=== PATIENT | male | born 1945 | race Two or more races ===

== ENCOUNTER 2016-05-05 22:06 | Emergency (ER) | payer MEDICARE, OTHER ==
[~2016-05-05] VITALS: Ht 182.9 cm; Wt 95.3 kg
[~2016-05-05 22:06] MED LIST: ALBUTEROL SULF8.5 GM INH; AMOXICILLIN500 MG ORAL; ASPIRIN EC81 MG PO; ATORVASTATIN CA10 MG PO; AZITHROMYCIN250 MG ORAL; CELEXA20 MG ORAL; FLOMAX0.4 MG PO; IBUPROFEN600 MG ORAL; IBUPROFEN800 MG ORAL; JANUMET 50-1,01 EACH PO; LORATADINE10 M2 PO; LOSARTAN-HCTZ1 EAC2 PO; METFORMIN HCL500 M1 ORAL; NORCO 5-325 TA1 EACH ORAL; OMEGA-31000 M1 PO; OMEPRAZOLE10 M1 ORAL; PROMETHAZINE-C118 M1 ORAL; SYNTHROID100 MCG PO; TRAMADOL HCL50 MG ORAL; TRICOR54 MG ORAL; TUSSIN DM CLEA118 M1 PO; ZITHROMAX250 MG ORAL
[2016-05-05] MEDS ORDERED: ACETAMINOPHEN-1 EAC1 ORAL (23:00)
[2016-05-05 23:10] VITALS: BP 168/86
--- NOTE | 2016-05-06 08:55 | Emergency Room Report ---
History of Present Illness General Chief Complaint: Hypertension Source: Patient Present Illness HPI 71 YO M with left arm pain and "high blood pressure". Patient endorses self- stopping HTN med lisinopril "weeks ago." Patient states he was "told to stop the medication because my pressure is better." He states he has had left arm pain "for weeks." He denies assoc chest pain, SOB, fever/chills. Per EMR, patient has had multiple visits here for similar noncompliance with BP med and also left arm pain. Has had lab work including troponin, which was negative, recently. This is very similar to multiple recent visits to ED. Allergies: Coded Allergies: No Known Allergies (Unverified , 06/02/12) Patient History Past Medical History: HTN Past Surgical History: none Pertinent Family History: none Social History: Denies: alcohol use, drug use, smoking Immunizations: UTD Reviewed Nursing Documentation: PMH: Agreed, PSxH: Agreed Nursing Documentation-PMH Past Medical History: No History, Except For Hx Cardiac Problems: Yes - high cholesterol Hx Hypertension: Yes Hx Pacemaker: No Hx Asthma: No Hx COPD: No Hx Diabetes: Yes Hx Cancer: No Hx Dialysis: No Hx Neurological Problems: No Hx Cerebrovascular Accident: No Hx Seizures: No Review of Systems All Other Systems: negative except mentioned in HPI Physical Exam Vital Signs Date Time Temp Pulse Resp B/P Pulse Ox O2 Delivery O2 Flow Rate FiO2 05/05/16 22:28 98.1 65 16 190/87 99 Room Air Sp02 EP Interpretation: reviewed, normal General Appearance: normal inspection, well appearing, no apparent distress, alert Head: normocephalic, atraumatic ENT: normal ENT inspection, hearing grossly normal, normal voice Neck: normal inspection, full range of motion, supple, no bony tend Musculoskeletal: normal inspection, back normal, normal range of motion, non- tender, Rudy's Sign negative, other - Left arm: sensation intact. Motor strength intact. No obvious sign of infection. Compartments are south. Neurologic: normal inspection, alert, oriented x3, responsive, powersaw supervisor III-XII nml as tested, motor strength/tone normal, cerebellar normal, normal gait, speech normal Psychiatric: normal inspection, judgement/insight normal, mood/affect normal Skin: normal inspection Lymphatic: normal inspection Medical Decision Making Diagnostic Impression: Primary Impression: Musculoskeletal arm pain Qualified Codes: M79.602 - Pain In Left Arm ER Course 71 YO M with MSK pain to left arm, multiple recent visits for same. VSS. Afebrile. ECG unchanged from previous. Low suspicion for acute AMI, upper extremity DVT, infection. MUltiple visitis for pain, likely MSK Had negative labwork done recently. No need to repeat currently Patient took his home HTN med in the ED No assoc headache, chest pain, flank pain that would warrant further workup for HTN urgency DC home Reiterated importance of HTN med compliance Last Vital Signs Date Time Temp Pulse Resp B/P Pulse Ox O2 Delivery O2 Flow Rate FiO2 05/05/16 23:10 98.0 57 14 168/86 100 Room Air Status: improved Disposition: HOME, SELF-CARE Condition: Improved Scripts Acetaminophen With Codeine (T#3) (TYLENOL #3 TAB*) Y Tab 1 TAB ORAL Q8H Y for For Pain, #30 TAB Prov: CAREY ANTON M.D. 05/05/16 Patient Instructions: Musculoskeletal Pain, Hypertension, [id number] Additional Instructions: - Take your BP medication every day - Try taking Tyelnol #3 for pain - Follow up with your primary care doctor in 2-3 days for recurrent left arm pain CAREY ANTON M.D. May 06, 2016 08:55
--- NOTE | 2016-05-06 15:01 | Cardiology Report ---
APPROVED REPORT EKG Measurement Heart [id number] Normal sinus rhythm Right bundle branch block Left anterior fascicular block Bifascicular block Abnormal ECG
== END 2016-05-05 23:15 | disposition home or self-care (01) ==
LOC: EMR 22:47
DX: I10 Essential (primary) hypertension (principal); M79.602 Pain in left arm; E78.00 Pure hypercholesterolemia, unspecified; E11.9 Type 2 diabetes mellitus without complications
CPT/HCPCS: 93005; 99283

== ENCOUNTER 2016-07-29 02:16 | Emergency (ER) | payer MEDICARE, OTHER ==
[~2016-07-29] VITALS: Ht 182.9 cm; Wt 95.3 kg
[~2016-07-29 02:16] MED LIST changes: +ACETAMINOPHEN-1 EAC1 ORAL
[2016-07-29 02:31] VITALS: BP 161/73
--- NOTE | 2016-07-29 02:43 | Emergency Room Report ---
History of Present Illness General Chief Complaint: Abdominal Pain Source: Patient Present Illness HPI 71-year-old male with history hypertension diabetes. He presents with chief complaint abdominal pain for last 5 days. No vomiting but has occasional diarrhea. Pain is diffuse localized to the umbilicus. No fever or chills. No other complaint. Pain is 7/10. Denies any urinary complaint. Allergies: Coded Allergies: No Known Allergies (Unverified , 06/02/12) Patient History Past Medical History: see triage record, old chart reviewed, DM, HTN Past Surgical History: none Pertinent Family History: none Social History: Denies: smoking Immunizations: other Reviewed Nursing Documentation: PMH: Agreed, PSxH: Agreed Nursing Documentation-PMH Hx Cardiac Problems: Yes - high cholesterol Hx Hypertension: Yes Hx Pacemaker: No Hx Asthma: No Hx COPD: No Hx Diabetes: Yes Hx Cancer: No Hx Dialysis: No Hx Neurological Problems: No Hx Cerebrovascular Accident: No Hx Seizures: No Review of Systems Eye: Denies: blurred vision, eye pain ENT: Denies: ear pain, nose congestion, throat swelling Respiratory: Denies: cough, shortness of breath Cardiovascular: Denies: chest pain, palpitations Gastrointestinal: Reports: abdominal pain, diarrhea, Denies: nausea, vomiting Musculoskeletal: Denies: back pain, joint pain Skin: Denies: rash Neurological: Denies: headache, numbness Endocrine: Denies: increased thirst, increased urine Hematologic/Lymphatic: Denies: easy bruising All Other Systems: negative except mentioned in HPI Physical Exam Vital Signs Date Time Temp Pulse Resp B/P Pulse Ox O2 Delivery O2 Flow Rate FiO2 07/29/16 02:18 97.9 63 14 141/77 97 Room Air vitals normal Sp02 EP Interpretation: reviewed, normal General Appearance: well appearing, no apparent distress, alert Head: normocephalic, atraumatic Eyes: bilateral eye EOMI, bilateral eye PERRL ENT: hearing grossly normal, normal pharynx Neck: full range of motion, supple, no meningismus Respiratory: chest non-tender, lungs clear, normal breath sounds Cardiovascular #1: regular rate, rhythm, no murmur Gastrointestinal: normal bowel sounds, no mass, no organomegaly, no bruit, non- distended, tenderness - Mild periumbilical. No hernia palpated. Musculoskeletal: back normal, gait/station normal, normal range of motion Psychiatric: mood/affect normal Skin: warm/dry Medical Decision Making Diagnostic Impression: Primary Impression: Abdominal pain of unknown etiology Additional Impression: Cholelithiasis Qualified Codes: K80.20 - Calculus of gallbladder without cholecystitis without obstruction ER Course Patient with abdominal pain his pain is periumbilical and left lateral. He does have occasional pain in the right upper quadrant after eating. Right now he has no pain in the right upper quadrant. CT scan showed gallstone in the neck of the gallbladder. There may be some pericholecystic fluid. Critically he does not have evidence of cholecystitis. I will order an ultrasound. If negative patient to be discharged home with outpatient followup. If positive for cholecystitis, will admit versus transfer based on insurance. Patient expressed understanding. Ultrasound showed small gallstones and sludge but no evidence of cholecystitis. Negative Scott sign. No pericholecystic fluid. Common bile duct is normal. Laboratory Tests Test 07/29/16 02:45 White Blood Count 6.1 K/UL (4.8-10.8) Red Blood Count 5.70 M/UL (4.70-6.10) Hemoglobin 16.9 G/DL (14.2-18.0) Hematocrit 48.6 % (42.0-52.0) Mean Corpuscular Volume 85 FL (80-99) Mean Corpuscular Hemoglobin 29.8 PG (27.0-31.0) Mean Corpuscular Hemoglobin Concent 34.8 G/DL (32.0-36.0) Red Cell Distribution Width 12.3 % (11.6-14.8) Platelet Count 171 K/UL (150-450) Mean Platelet Volume 8.2 FL (6.5-10.1) Neutrophils (%) (Auto) 49.9 % (45.0-75.0) Lymphocytes (%) (Auto) 35.7 % (20.0-45.0) Monocytes (%) (Auto) 11.3 % (1.0-10.0) H Eosinophils (%) (Auto) 1.9 % (0.0-3.0) Basophils (%) (Auto) 1.4 % (0.0-2.0) Urine Color Pale yellow Urine Appearance Clear Urine pH 6 (4.5-8.0) Urine Specific [place] 1.015 (1.005-1.035) Urine Protein Negative (NEGATIVE) Urine Glucose (UA) Negative (NEGATIVE) Urine Ketones Negative (NEGATIVE) Urine Occult Blood Negative (NEGATIVE) Urine Nitrite Negative (NEGATIVE) Urine Bilirubin Negative (NEGATIVE) Urine Urobilinogen Normal MG/DL (0.0-1.0) Urine Leukocyte Esterase Negative (NEGATIVE) Sodium Level 136 mEQ/L (135-145) Potassium Level 4.5 mEQ/L (3.4-4.9) Chloride Level 96 mEQ/L (98-107) L Carbon Dioxide Level 28 mEQ/L (20-30) Anion Gap 12 (5-15) Blood Urea Nitrogen 12 mg/dL (7-23) Creatinine 0.9 mg/dL (0.7-1.2) Estimat Glomerular Filtration Rate mL/min (>60) Glucose Level 140 mg/dL (74-106) H Calcium Level 9.8 mg/dL (8.6-10.2) Total Bilirubin 0.4 mg/dL (0.0-1.2) Aspartate Amino Transf (AST/SGOT) < 5 U/L (5-40) L Alanine Aminotransferase (ALT/SGPT) 27 U/L (3-41) Alkaline Phosphatase 60 U/L (40-129) Total Protein 7.0 g/dL (6.6-8.7) Albumin 4.1 g/dL (3.5-5.2) Globulin 2.9 g/dL Albumin/Globulin Ratio 1.4 (1.0-2.7) Lipase 35 U/L (< 60) Lab Results Impression labs normal Other X-Ray Diagnostic Results Other X-Ray Diagnostic Results : X-Ray Ordered: Ultrasound abdomen Findings: other - Read by water tanker driver. Gallstones and sludge. No evidence of pericholecystic fluid. Negative Scott sign. CT/MRI/US Diagnostic Results CT/MRI/US Diagnostic Results : Imaging Test Ordered: CT abdomen and pelvis Impression Read by radiologist. Gallstone in the neck of the gallbladder. Some gallbladder wall thickening and or pericholecystic fluid is suspected. Appendix normal Last Vital Signs Date Time Temp Pulse Resp B/P Pulse Ox O2 Delivery O2 Flow Rate FiO2 07/29/16 02:31 97.9 60 13 161/73 100 Room Air Status: improved Disposition: HOME, SELF-CARE Condition: Stable Scripts Ibuprofen* (MOTRIN*) 600 Mg Tablet 600 MG ORAL THREE TIMES A DAY, #30 TAB 0 Refills Prov: PELON ROBB M.D. 07/29/16 Additional Instructions: Followup with your Dr. in 2-3 days. You may need a referral to see a surgeon. Return if symptom worsen. PELON ROBB M.D. Jul 29, 2016 02:43
[2016-07-29] MEDS ORDERED: Ketorolac 30mg Inj IV ONE (02:45)
[2016-07-29 02:58] LABS: BASOPHILS % (AUTO) 1.4 % (0.0-2.0); EOSINOPHILS % (AUTO) 1.9 % (0.0-3.0); LYMPHOCYTES % (AUTO) 35.7 % (20.0-45.0); MEAN CORPUSCULAR HEMOGLOBIN 29.8 PG (27.0-31.0); MEAN CORPUSCULAR HGB CONC 34.8 G/DL (32.0-36.0); MEAN CORPUSCULAR VOLUME 85 FL (80-99); MEAN PLATELET VOLUME 8.2 FL (6.5-10.1); MONOCYTES % (AUTO) 11.3 % (1.0-10.0); NEUTROPHILS % (AUTO) 49.9 % (45.0-75.0); PLATELET COUNT 171 K/UL (150-450); RED CELL DISTRIBUTION WIDTH 12.3 % (11.6-14.8); WHITE BLOOD COUNT 6.1 K/UL (4.8-10.8)
[2016-07-29 03:06] LABS: APPEARANCE,URINE CLEAR; KETONES,URINE NEGATIVE (NEGATIVE); LEUKOCYTE ESTERASE ,URINE NEGATIVE (NEGATIVE); NITRITE,URINE NEGATIVE (NEGATIVE); PH,URINE 6 (4.5-8.0); PROTEIN,URINE NEGATIVE (NEGATIVE); UROBILINOGEN,URINE NORMAL MG/DL (0.0-1.0)
[2016-07-29 03:15] LABS: ALANINE AMINOTRANSFERASE 27 U/L (3-41); ALBUMIN/GLOBULIN RATIO 1.4 (1.0-2.7); ANION GAP 12 (5-15); CALCIUM 9.8 mg/dL (8.6-10.2); CARBON DIOXIDE 28 mEQ/L (20-30); CHLORIDE 96 mEQ/L (98-107); CREATININE 0.9 mg/dL (0.7-1.2); HEMOLYSIS 30; LIPASE 35 U/L (< 60); POTASSIUM 4.5 mEQ/L (3.4-4.9); SODIUM 136 mEQ/L (135-145)
[2016-07-29 03:23] LABS: ASPARTATE AMINO TRANSFERASE < 5 U/L (5-40)
[2016-07-29 04:30] VITALS: BP 150/74
[2016-07-29] MEDS ORDERED: cefTRIAXone 1 GM in NS 55 ML IVPB ONE (05:00)
[2016-07-29] MEDS ORDERED: IBUPROFEN600 MG ORAL (05:55)
[2016-07-29 06:00] VITALS: BP 146/76
--- NOTE | 2016-07-29 11:11 | Diagnostic Imaging Report ---
Clinical Indication: Abdominal pain Technique: No oral contrast utilized, per emergency room physician request IV administration nonionic contrast. Venous phase spiral acquisition obtained through the abdomen and pelvis. Multiplanar reconstructions were generated. Total dose length product 954 mGycm. CTDIvol(s) 18 mGy Comparison: 08/26/2015 Findings: Previously demonstrated gallstone is again seen within the gallbladder neck. There is distention of the gallbladder and thickening of the gallbladder wall, equivocal subtle slight infiltration of the pericholecystic fat. No biliary ductal dilatation. The liver demonstrates a tiny low-attenuation lesion in the dome, which is too small to characterize but evident previously in retrospect and unchanged. The pancreas is unremarkable. The spleen is mildly enlarged, measuring 13.7 cm long axis dimension. The adrenals are unremarkable. The left kidney demonstrates a 2 mm calculus in the lower pole collecting system. No focal parenchymal abnormality. The right kidney is unremarkable. The bladder is equivocally mildly thickwalled although underdistended. The prostate is enlarged, similar to previously. No pelvic adenopathy demonstrated. There is colonic diverticulosis. No evidence of diverticulitis. The appendix is normal. No small bowel distention. There is a tiny duodenal diverticulum. There is a small sliding-type hiatal hernia. The stomach is unremarkable. There are degenerative changes of the lumbar spine. The lung bases demonstrate posterior dependent atelectatic changes Impression: Cholelithiasis. Distention and wall thickening of the gallbladder is concerning for acute cholecystitis. Consider hepatobiliary nuclear medicine scan for better characterization Nonobstructive 2 mm left lower pole intrarenal calculus, also previously reported Diverticulosis. No evidence of diverticulitis. Tiny lesion in the dome of the liver, unchanged from prior study of 08/26/2015, most likely a benign simple cysts or bile hamartomas. No further followup necessary Mild splenomegaly Prostatomegaly Mildly thickwalled bladder, possibly an artifact of under distention, but could be secondary to chronic bladder obstruction from the above Incidental findings of tiny findings at hernia, degenerative lumbar spondylosis, posterior dependent atelectatic pulmonary parenchymal changes This agrees with the preliminary interpretation provided overnight by [facility] teleradiology service. The CT scanner at [facility] is accredited by the [employer] and the scans are performed using protocols designed to limit radiation exposure to as low as reasonably achievable to attain images of sufficient resolution adequate for diagnostic evaluation.
--- NOTE | 2016-08-14 13:40 | Diagnostic Imaging Report ---
Indications: Abdominal pain Technique: Transabdominal real-time grayscale and duplex Doppler imaging of the upper abdomen and retroperitoneum was performed. Findings: Comparison: CT abdomen pelvis 07/29/16; abdominal ultrasound 12/09/2015. Liver normal size and surface contour, diffusely increased parenchymal echogenicity. No focal lesions. Gallbladder contains hypoechoic multilobulated nodular material. Suggestion of small echogenic shadowing focus in... No mural thickening or adjacent fluid collections. Sonographic Scott sign reported as negative.. Bile ducts normal caliber. Common bile duct 8 mm. Pancreas head and body suboptimally visualized without obvious abnormality; tail completely obscured. Spleen unremarkable. Right kidney unremarkable. Left kidney unremarkable. Abdominal aorta, intrahepatic portion of inferior vena cava patent, normal caliber. Duplex Doppler imaging demonstrates antegrade flow in splenic, portal, hepatic veins. No ascites. IMPRESSION: Hepatic steatosis Gallbladder sludge and stone in neck. Mural thickening on CT scan not well demonstrated here. Negative sonographic Scott sign. Consider nuclear medicine hepatobiliary scan for further evaluation as clinically indicated. Suboptimal visualization of pancreas.
== END 2016-07-29 06:00 | disposition home or self-care (01) ==
LOC: EMR 02:49
DX: R10.9 Unspecified abdominal pain (principal); K80.20 Calculus of gallbladder without cholecystitis without obstruction; I10 Essential (primary) hypertension; E11.9 Type 2 diabetes mellitus without complications; E78.00 Pure hypercholesterolemia, unspecified
CPT/HCPCS: 36415; 74177; 76700; 80053; 81003; 83690; 85025; 96374; 96375; 99284; J0696; J1885; J2405; Q9967

== ENCOUNTER 2016-08-12 11:43 | Emergency (ER) | payer MEDICARE, OTHER ==
[~2016-08-12] VITALS: Ht 182.9 cm; Wt 95.3 kg
[2016-08-12] MEDS ORDERED: NS 55ml IV ONE (12:11)
[2016-08-12 12:28] VITALS: BP 155/79
[2016-08-12] MEDS ORDERED: Morphine Sulfate 4mg/ml Inj IVP ONE ×4 (12:30→15:15)
[2016-08-12 12:47] LABS: BASOPHILS % (AUTO) 0.4 % (0.0-2.0); EOSINOPHILS % (AUTO) 0.5 % (0.0-3.0); LYMPHOCYTES % (AUTO) 20.6 % (20.0-45.0); MEAN CORPUSCULAR HEMOGLOBIN 29.1 PG (27.0-31.0); MEAN CORPUSCULAR HGB CONC 33.7 G/DL (32.0-36.0); MEAN CORPUSCULAR VOLUME 86 FL (80-99); MEAN PLATELET VOLUME 8.2 FL (6.5-10.1); MONOCYTES % (AUTO) 8.4 % (1.0-10.0); NEUTROPHILS % (AUTO) 70.1 % (45.0-75.0); PLATELET COUNT 185 K/UL (150-450); RED BLOOD COUNT 5.76 M/UL (4.70-6.10); RED CELL DISTRIBUTION WIDTH 12.4 % (11.6-14.8); WHITE BLOOD COUNT 7.7 K/UL (4.8-10.8)
[2016-08-12 12:51] LABS: APPEARANCE,URINE CLEAR; KETONES,URINE NEGATIVE (NEGATIVE); LEUKOCYTE ESTERASE ,URINE NEGATIVE (NEGATIVE); NITRITE,URINE NEGATIVE (NEGATIVE); PH,URINE 6.5 (4.5-8.0); PROTEIN,URINE NEGATIVE (NEGATIVE); UROBILINOGEN,URINE NORMAL MG/DL (0.0-1.0)
[2016-08-12 12:56] LABS: INR 1.1 (0.9-1.1); PROTHROMBIN TIME 10.7 SEC (9.30-11.50)
[2016-08-12 13:01] LABS: TROPONIN I < 0.30 ng/mL (<=0.30)
[2016-08-12 13:06] LABS: ALANINE AMINOTRANSFERASE 25 U/L (3-41); ALBUMIN/GLOBULIN RATIO 1.5 (1.0-2.7); ANION GAP 15 (5-15); ASPARTATE AMINO TRANSFERASE 29 U/L (5-40); CALCIUM 9.9 mg/dL (8.6-10.2); CARBON DIOXIDE 27 mEQ/L (20-30); CHLORIDE 96 mEQ/L (98-107); HEMOLYSIS 4; LIPASE 32 U/L (< 60); POTASSIUM 4.2 mEQ/L (3.4-4.9); SODIUM 138 mEQ/L (135-145); TOTAL PROTEIN 7.1 g/dL (6.6-8.7)
[2016-08-12 14:30] VITALS: BP 162/82
--- NOTE | 2016-08-12 15:13 | Emergency Room Report ---
History of Present Illness General Chief Complaint: Abdominal Pain Source: Patient Present Illness HPI This patient has a history of cholecystitis that was diagnosed 2 weeks ago. Apparently, he left AGAINST MEDICAL ADVICE when I reviewed the chart. However, the of the patient states he went to [facility] and were discharged without surgery. Regardless, the patient complains of right upper quadrant pain for the past 3 days. He states that the pain has increased in severity and has become intolerable. He also has subjective fever and chills. Allergies: Coded Allergies: No Known Allergies (Unverified , 06/02/12) Patient History Past Medical History: see triage record, DM, HTN Social History: Denies: alcohol use, drug use, smoking Reviewed Nursing Documentation: PMH: Agreed, PSxH: Agreed Nursing Documentation-PMH Past Medical History: No History, Except For Hx Cardiac Problems: Yes - high cholesterol Hx Hypertension: Yes Hx Pacemaker: No Hx Asthma: No Hx COPD: No Hx Diabetes: Yes Hx Cancer: No Hx Gastrointestinal Problems: Yes - gallbladder Hx Dialysis: No Hx Neurological Problems: No Hx Cerebrovascular Accident: No Hx Seizures: No Review of Systems All Other Systems: negative except mentioned in HPI Physical Exam Vital Signs Date Time Temp Pulse Resp B/P Pulse Ox O2 Delivery O2 Flow Rate FiO2 08/12/16 11:48 99.3 64 16 142/69 94 Room Air Sp02 EP Interpretation: reviewed, normal General Appearance: no apparent distress, alert, GCS 15, non-toxic Head: normocephalic, atraumatic Eyes: bilateral eye PERRL, bilateral eye normal inspection ENT: hearing grossly normal, normal pharynx, no angioedema, normal voice Neck: full range of motion, supple/symm/no masses Respiratory: chest non-tender, lungs clear, normal breath sounds, speaking full sentences Cardiovascular #1: regular rate, rhythm, no edema Gastrointestinal: soft, non-distended, no guarding, no rebound, tenderness - Tender to palpation in the RUQ Rectal: deferred Musculoskeletal: back normal, gait/station normal, normal range of motion, non- tender Neurologic: alert, oriented x3, responsive, motor strength/tone normal, sensory intact, speech normal Psychiatric: judgement/insight normal, memory normal, mood/affect normal, no suicidal/homicidal ideation Skin: normal color, no rash, warm/dry, well hydrated Medical Decision Making Diagnostic Impression: Primary Impression: Cholecystitis Additional Impression: Cholelithiasis ER Course This patient presents with cholecystitis. He also has a gallstone in the gallbladder neck very close to the common bile duct. There is no evidence of biliary obstruction. The patient has normal liver function tests. This patient will need cholecystectomy. He did agree to admission and surgical removal of his gallbladder. He is given broad-spectrum antibiotics, IV fluids and pain control. He is admitted for further evaluation and treatment. Labs Test 08/12/16 12:03 White Blood Count 7.7 K/UL (4.8-10.8) Red Blood Count 5.76 M/UL (4.70-6.10) Hemoglobin 16.8 G/DL (14.2-18.0) Hematocrit 49.8 % (42.0-52.0) Mean Corpuscular Volume 86 FL (80-99) Mean Corpuscular Hemoglobin 29.1 PG (27.0-31.0) Mean Corpuscular Hemoglobin Concent 33.7 G/DL (32.0-36.0) Red Cell Distribution Width 12.4 % (11.6-14.8) Platelet Count 185 K/UL (150-450) Mean Platelet Volume 8.2 FL (6.5-10.1) Neutrophils (%) (Auto) 70.1 % (45.0-75.0) Lymphocytes (%) (Auto) 20.6 % (20.0-45.0) Monocytes (%) (Auto) 8.4 % (1.0-10.0) Eosinophils (%) (Auto) 0.5 % (0.0-3.0) Basophils (%) (Auto) 0.4 % (0.0-2.0) Prothrombin Time 10.7 SEC (9.30-11.50) Prothromb Time International Ratio 1.1 (0.9-1.1) Activated Partial Thromboplast Time 27 SEC (23-33) Urine Color Pale yellow Urine Appearance Clear Urine pH 6.5 (4.5-8.0) Urine Specific [place] 1.010 (1.005-1.035) Urine Protein Negative (NEGATIVE) Urine Glucose (UA) 1+ (NEGATIVE) Urine Ketones Negative (NEGATIVE) Urine Occult Blood Negative (NEGATIVE) Urine Nitrite Negative (NEGATIVE) Urine Bilirubin Negative (NEGATIVE) Urine Urobilinogen Normal MG/DL (0.0-1.0) Urine Leukocyte Esterase Negative (NEGATIVE) Sodium Level 138 mEQ/L (135-145) Potassium Level 4.2 mEQ/L (3.4-4.9) Chloride Level 96 mEQ/L (98-107) Carbon Dioxide Level 27 mEQ/L (20-30) Anion Gap 15 (5-15) Blood Urea Nitrogen 14 mg/dL (7-23) Creatinine 1.0 mg/dL (0.7-1.2) Estimat Glomerular Filtration Rate mL/min (>60) Glucose Level 175 mg/dL (74-106) Calcium Level 9.9 mg/dL (8.6-10.2) Total Bilirubin 0.5 mg/dL (0.0-1.2) Aspartate Amino Transf (AST/SGOT) 29 U/L (5-40) Alanine Aminotransferase (ALT/SGPT) 25 U/L (3-41) Alkaline Phosphatase 62 U/L (40-129) Troponin I < 0.30 ng/mL (<=0.30) Total Protein 7.1 g/dL (6.6-8.7) Albumin 4.3 g/dL (3.5-5.2) Globulin 2.8 g/dL Albumin/Globulin Ratio 1.5 (1.0-2.7) Lipase 32 U/L (< 60) EKG Diagnostic Results Rate: normal Rhythm: NSR ST Segments: no acute changes Other Impression RBBB Rhythm Strip Diag. Results EP Interpretation: yes Rate: 60's Rhythm: NSR, no PVC's, no ectopy CT/MRI/US Diagnostic Results CT/MRI/US Diagnostic Results : Imaging Test Ordered: RUQ US Impression Cholecystitis. Cholelithiasis. Gallstone in the gallbladder neck. Last Vital Signs Date Time Temp Pulse Resp B/P Pulse Ox O2 Delivery O2 Flow Rate FiO2 08/12/16 14:30 99.1 66 22 162/82 98 Room Air Disposition: ADMITTED INPATIENT Condition: Serious Referrals: NOT CHOSEN IPA/,REFERRING (PCP) ELINOR FRENCH D.O. Aug 12, 2016 15:13
[2016-08-12] MEDS ORDERED: cefOXitin 2gm Inj IVP ONE (15:15)
--- NOTE | 2016-08-12 15:29 | Diagnostic Imaging Report ---
Indication: Right upper quadrant pain x3 days, vomiting Technique: Pineda-scale and duplex images of the upper abdomen were obtained Comparison: 07/29/2016 Findings: . Gallbladder demonstrates gallstones and sludge. A nonmobile stone is seen within the gallbladder neck. Gallbladder wall is markedly thickened, measuring up to 15 mm thick. Sonographic Scott's sign could not be assessed. Common bile duct measures 8 mm in diameter. No intrahepatic biliary ductal dilatation. Liver demonstrates diffusely increased echogenicity, consistent with diffuse hepatocellular disease, most likely fatty change.. Portal vein and hepatic veins are patent.. Pancreas is obscured by bowel gas. Spleen is unremarkable. Left kidney measures 12.8 cm in length. Right kidney measures 11.2 cm length. Both kidneys demonstrate normal echogenicity. There is no hydronephrosis. No focal abnormality. Abdominal aorta is obscured by bowel gas. Impression: Cholelithiasis and gallbladder sludge, also previously described. Marked gallbladder wall thickening, raises concern for acute cholecystitis. Correlate with clinical findings, consider hepatobiliary nuclear scan if there is high clinical suspicion Mildly ectatic extra hepatic bile ducts. Downstream obstruction not completely excludable. Correlate with liver function tests, consider MRCP if clinically indicated. Liver demonstrates diffusely increased echogenicity, consistent with diffuse hepatocellular disease, most likely fatty change. Note nonvisualization of the pancreas and abdominal aorta
[2016-08-12] MEDS ORDERED: HYDROmorphone 1mg/ml Carpuject ONE (15:34)
[2016-08-12] MEDS ORDERED: DiphenhydrAMINE 50mg/ml Inj ONE (15:35)
[2016-08-12] MEDS ORDERED: HYDROmorphone 1 MG, DiphenhydrAMINE 25 MG in NS 55 ML IVPB ONE (15:45)
[2016-08-12] MEDS ORDERED: cefOXitin 1gm Inj ONE (15:59)
[2016-08-12] MEDS ORDERED: cefOXitin Sod 1 GM in NS 55 ML IVPB ONE (16:00)
[2016-08-12 16:30] VITALS: BP 151/71
[2016-08-12 18:16] VITALS: BP 139/70
--- NOTE | 2016-08-17 22:45 | Cardiology Report ---
APPROVED REPORT EKG Measurement Heart [id number] MD [id number] Normal sinus rhythm Left axis deviation Right bundle branch block Abnormal ECG
== END 2016-08-12 18:18 | disposition short-term general hospital (02) ==
LOC: EMR 12:10
DX: K80.10 Calculus of gallbladder with chronic cholecystitis without obstruction (principal); I10 Essential (primary) hypertension; E11.9 Type 2 diabetes mellitus without complications
CPT/HCPCS: 36415; 76700; 80053; 81003; 83690; 84484; 85025; 85610; 85730; 93005; 99285; J0694; J1170; J1200; J2270; J2405

== ENCOUNTER 2016-10-18 19:55 | Emergency (ER) | payer MEDICARE, OTHER ==
[~2016-10-18] VITALS: Ht 182.9 cm; Wt 95.3 kg
[2016-10-18] MEDS ORDERED: Albuterol ud Inhalation HHN ONE (20:30)
[2016-10-18 20:35] LABS: BASOPHILS % (AUTO) 1.1 % (0.0-2.0); EOSINOPHILS % (AUTO) 0.9 % (0.0-3.0); LYMPHOCYTES % (AUTO) 31.9 % (20.0-45.0); MEAN CORPUSCULAR HEMOGLOBIN 29.7 PG (27.0-31.0); MEAN CORPUSCULAR HGB CONC 34.6 G/DL (32.0-36.0); MEAN CORPUSCULAR VOLUME 86 FL (80-99); MEAN PLATELET VOLUME 8.8 FL (6.5-10.1); MONOCYTES % (AUTO) 7.8 % (1.0-10.0); NEUTROPHILS % (AUTO) 58.3 % (45.0-75.0); PLATELET COUNT 135 K/UL (150-450); RED BLOOD COUNT 5.08 M/UL (4.70-6.10); RED CELL DISTRIBUTION WIDTH 12.5 % (11.6-14.8); WHITE BLOOD COUNT 6.1 K/UL (4.8-10.8)
[2016-10-18 20:45] LABS: TROPONIN I < 0.30 ng/mL (<=0.30)
[2016-10-18] MEDS ORDERED: guaiFENesin 100mg/5ml Liq ud ORAL ONE (20:45)
[2016-10-18 20:49] LABS: ALANINE AMINOTRANSFERASE 27 U/L (3-41); ALBUMIN/GLOBULIN RATIO 1.8 (1.0-2.7); ANION GAP 14 (5-15); ASPARTATE AMINO TRANSFERASE 29 U/L (5-40); CALCIUM 9.7 mg/dL (8.6-10.2); CARBON DIOXIDE 25 mEQ/L (20-30); CHLORIDE 98 mEQ/L (98-107); HEMOLYSIS 9; SODIUM 137 mEQ/L (135-145); TOTAL PROTEIN 7.1 g/dL (6.6-8.7)
[2016-10-18 20:59] LABS: APPEARANCE,URINE CLEAR; KETONES,URINE NEGATIVE (NEGATIVE); LEUKOCYTE ESTERASE ,URINE NEGATIVE (NEGATIVE); NITRITE,URINE NEGATIVE (NEGATIVE); PH,URINE 6 (4.5-8.0); PROTEIN,URINE NEGATIVE (NEGATIVE); UROBILINOGEN,URINE NORMAL MG/DL (0.0-1.0)
[2016-10-18] MEDS ORDERED: GUAIFENESIN-CO118 M1 ORAL (21:24)
[2016-10-18 21:35] VITALS: BP 140/84
[2016-10-18 21:40] VITALS: BP 140/84
--- NOTE | 2016-10-18 22:17 | Emergency Room Report ---
History of Present Illness General Chief Complaint: Chest Pain Source: Patient Present Illness HPI Patient is a 71-year-old male presented after increased cough for the past 4 days. Patient had been hospitalized at [facility] approximate 2 days ago. The patient had not any fever. He reported having intermittent chest discomfort worse with coughing. He was given prescription for antibiotics and inhalers. He had gradual onset of symptoms. The patient denies any exertional component to the pain. He stated he was seen by press pipe inspector on hospital and was advised followup with him. The pain was worse with coughing. he reported taking an inhaler. The patient denies prior history of lung disease or smoking Allergies: Coded Allergies: No Known Allergies (Unverified , 06/02/12) Patient History Past Medical History: see triage record Reviewed Nursing Documentation: PMH: Agreed, PSxH: Agreed Nursing Documentation-PMH Hx Cardiac Problems: Yes - high cholesterol Hx Hypertension: Yes Hx Pacemaker: No Hx Asthma: No Hx COPD: No Hx Diabetes: Yes Hx Cancer: No Hx Gastrointestinal Problems: Yes - gallbladder Hx Dialysis: No Hx Neurological Problems: No Hx Cerebrovascular Accident: No Hx Seizures: No Review of Systems All Other Systems: negative except mentioned in HPI Physical Exam Vital Signs Date Time Temp Pulse Resp B/P Pulse Ox O2 Delivery O2 Flow Rate FiO2 10/18/16 20:00 98.1 66 18 167/86 96 Room Air 10/18/16 20:40 21 Sp02 EP Interpretation: reviewed, normal General Appearance: normal inspection, well appearing, no apparent distress, alert, GCS 15 Head: atraumatic ENT: normal ENT inspection, hearing grossly normal, normal voice Neck: normal inspection, full range of motion, supple, no bony tend Respiratory: normal inspection, lungs clear, normal breath sounds, no respiratory distress, no retraction, no wheezing Cardiovascular #1: regular rate, rhythm, no edema Gastrointestinal: normal inspection, normal bowel sounds, non tender, soft, no guarding, no hernia Genitourinary: no CVA tenderness Musculoskeletal: normal inspection, back normal, normal range of motion Neurologic: normal inspection, alert, oriented x3, responsive, miter operator III-XII nml as tested, speech normal Psychiatric: normal inspection, judgement/insight normal, mood/affect normal Skin: normal inspection, normal color, no rash Medical Decision Making Diagnostic Impression: Primary Impression: Bronchitis Additional Impression: Bifascicular block ER Course Patient presented for chest pain. Differential diagnosis included but was not limited to acute coronary syndrome, pulmonary embolism, pneumonia, aortic dissection, shingles, pneumothorax, aortic dissection, esophageal rupture, Because of complexity of patient's case laboratory testing and imaging studies were ordered. Chest x-ray one view interpreted by me showed normal cardiac size without evident infiltrate or pneumothorax. EKG interpreted by me showed normal sinus rhythm with a rate of [address] or T wave changes. The patient is advised to follow up with primary care doctor in 1-2 days. Patient is advised to return if any worsening condition or if any changes in status that are concerning. Labs Test 10/18/16 20:10 10/18/16 20:30 White Blood Count 6.1 K/UL (4.8-10.8) Red Blood Count 5.08 M/UL (4.70-6.10) Hemoglobin 15.1 G/DL (14.2-18.0) Hematocrit 43.6 % (42.0-52.0) Mean Corpuscular Volume 86 FL (80-99) Mean Corpuscular Hemoglobin 29.7 PG (27.0-31.0) Mean Corpuscular Hemoglobin Concent 34.6 G/DL (32.0-36.0) Red Cell Distribution Width 12.5 % (11.6-14.8) Platelet Count 135 K/UL (150-450) Mean Platelet Volume 8.8 FL (6.5-10.1) Neutrophils (%) (Auto) 58.3 % (45.0-75.0) Lymphocytes (%) (Auto) 31.9 % (20.0-45.0) Monocytes (%) (Auto) 7.8 % (1.0-10.0) Eosinophils (%) (Auto) 0.9 % (0.0-3.0) Basophils (%) (Auto) 1.1 % (0.0-2.0) Sodium Level 137 mEQ/L (135-145) Potassium Level 4.0 mEQ/L (3.4-4.9) Chloride Level 98 mEQ/L (98-107) Carbon Dioxide Level 25 mEQ/L (20-30) Anion Gap 14 (5-15) Blood Urea Nitrogen 12 mg/dL (7-23) Creatinine 1.0 mg/dL (0.7-1.2) Estimat Glomerular Filtration Rate mL/min (>60) Glucose Level 165 mg/dL (74-106) Calcium Level 9.7 mg/dL (8.6-10.2) Total Bilirubin 0.5 mg/dL (0.0-1.2) Aspartate Amino Transf (AST/SGOT) 29 U/L (5-40) Alanine Aminotransferase (ALT/SGPT) 27 U/L (3-41) Alkaline Phosphatase 55 U/L (40-129) Troponin I < 0.30 ng/mL (<=0.30) Pro-B-Type Natriuretic Peptide 40 pg/mL (0-125) Total Protein 7.1 g/dL (6.6-8.7) Albumin 4.6 g/dL (3.5-5.2) Globulin 2.5 g/dL Albumin/Globulin Ratio 1.8 (1.0-2.7) Urine Color Pale yellow Urine Appearance Clear Urine pH 6 (4.5-8.0) Urine Specific [place] 1.010 (1.005-1.035) Urine Protein Negative (NEGATIVE) Urine Glucose (UA) Negative (NEGATIVE) Urine Ketones Negative (NEGATIVE) Urine Occult Blood Negative (NEGATIVE) Urine Nitrite Negative (NEGATIVE) Urine Bilirubin Negative (NEGATIVE) Urine Urobilinogen Normal MG/DL (0.0-1.0) Urine Leukocyte Esterase Negative (NEGATIVE) Lactic Acid Level 1.80 mmol/L (0.66-2.22) Chest X-Ray Diagnostic Results Chest X-Ray Ordered: Yes # of Views/Limited/Complete: 1 View Interpretation: no consolidation Indication: Chest Pain Impression: No acute disease Date Electronically Signed: Oct 18, 2016 Time Electronically Signed: 22:16 Interpreting ER Physician: Kalen Last Vital Signs Date Time Temp Pulse Resp B/P Pulse Ox O2 Delivery O2 Flow Rate FiO2 10/18/16 21:40 98.1 61 17 140/84 95 Room Air 21 Status: improved Disposition: HOME, SELF-CARE Condition: Stable Scripts Guaifenesin/Codeine Phos* (ROBITUSSIN AC*) 118 Ml Liquid 1 TSP ORAL Q6H Y for For Cough, #118 ML 0 Refills Prov: Elton Higuera 10/18/16 Referrals: NON PHYSICIAN (PCP) Patient Instructions: Nonspecific Chest Pain Elton Higuera Oct 18, 2016 22:17
--- NOTE | 2016-10-19 12:08 | Diagnostic Imaging Report ---
Indications: Shortness of breath Technique: Portable AP chest Findings: Comparison: 05/01/2016 Inspiratory effort has improved. Linear density persists in left lung base. Lungs and pleura remain otherwise clear. Cardiac silhouette remains enlarged. Pulmonary vasculature remains within normal limits. Mild calcification of aortic arch again noted. No abnormal mediastinal widening. Bones and extra pulmonary soft tissues remain unremarkable. IMPRESSION: No evidence of acute cardiopulmonary disease, unchanged Stable subsegmental atelectasis versus scarring left lung base Stable cardiomegaly Stable aortosclerosis
--- NOTE | 2016-10-20 20:09 | Cardiology Report ---
APPROVED REPORT EKG Measurement Heart [id number] MA [id number] Normal sinus rhythm Left axis deviation Right bundle branch block Abnormal ECG
== END 2016-10-18 21:40 | disposition home or self-care (01) ==
LOC: EMR 21:03
DX: J40 Bronchitis, not specified as acute or chronic (principal); I45.2 Bifascicular block; I10 Essential (primary) hypertension; E11.9 Type 2 diabetes mellitus without complications; E78.00 Pure hypercholesterolemia, unspecified
CPT/HCPCS: 36415; 71010; 80053; 81003; 83605; 83880; 84484; 85025; 87040; 93005; 94640; 94664; 99283

== ENCOUNTER 2017-01-10 03:57 | Emergency (ER) | payer MEDICARE, OTHER ==
[~2017-01-10] VITALS: Ht 182.9 cm; Wt 90.7 kg
[~2017-01-10 03:57] MED LIST changes: +GUAIFENESIN-CO118 M1 ORAL
[2017-01-10 04:13] VITALS: BP 156/81
[2017-01-10] MEDS ORDERED: Acetaminophen 500mg (ES) tab ORAL ONE (04:30)
[2017-01-10] MEDS ORDERED: MUCINEX600 MG PO (05:55)
[2017-01-10] MEDS ORDERED: Metoclopramide 10mg/2ml Inj IM ONE (06:00)
[2017-01-10 06:05] VITALS: BP 144/75
[2017-01-10 06:20] VITALS: BP 144/75
--- NOTE | 2017-01-10 11:47 | Diagnostic Imaging Report ---
Indication: AMS Technique: Continuous helical CT scanning of the head was performed without intravenous contrast material. Axial and coronal 5 mm sections were generated. Dose: Total Dose Length Product - DLP [address] Dose Index - CTDIvol(s) 70.38 mGy. Comparison:None. Findings: The ventricular system is normal in size and configuration. There is no shift of midline structures. No abnormal extra-axial fluid collections are noted. There is no evidence of intracerebral bleeding. No other abnormal high or low density areas are noted within the brain. Impression: Negative CT scan of the head without contrast material. The above report is concordant with preliminary reading by [facility] .. The CT scanner at [facility] is accredited by the [employer] and the scans are performed using protocols designed to limit radiation exposure to as low as reasonably achievable to attain images of sufficient resolution adequate for diagnostic evaluation.
--- NOTE | 2017-01-10 11:55 | Diagnostic Imaging Report ---
Indication: SOB Technique: XRAY CHEST 1 V. Comparison: 10/18/2016 Findings: The cardiomediastinal silhouette is stable. There are no acute infiltrates. No pleural fluid. There has been no change from previous study. Impression: No acute abnormality. .
--- NOTE | 2017-01-11 02:14 | Emergency Room Report ---
History of Present Illness General Chief Complaint: Hypertension Source: Patient Present Illness HPI Patient is a 71-year-old male who presented after increased headache and high blood pressure. The patient stated he had prior history of hypertension. He reportedly hadn't taken his blood pressure medications. He reports having throbbing sensation to his head. As having chronic cough which is nonproductive. Patient denies any fever. He denied any severe shortness of breath. Patient states he has prior history of panic attack. Allergies: Coded Allergies: No Known Allergies (Unverified , 06/02/12) Patient History Past Medical History: see triage record Reviewed Nursing Documentation: PMH: Agreed, PSxH: Agreed Nursing Documentation-PMH Hx Cardiac Problems: Yes - high cholesterol Hx Hypertension: Yes Hx Pacemaker: No Hx Asthma: No Hx COPD: No Hx Diabetes: Yes Hx Cancer: No Hx Gastrointestinal Problems: Yes - gallbladder Hx Dialysis: No Hx Neurological Problems: No Hx Cerebrovascular Accident: No Hx Seizures: No Review of Systems All Other Systems: negative except mentioned in HPI Physical Exam Vital Signs Date Time Temp Pulse Resp B/P (MAP) Pulse Ox O2 Delivery O2 Flow Rate FiO2 01/10/17 04:00 97.5 64 20 166/86 98 Room Air Sp02 EP Interpretation: reviewed, normal General Appearance: normal inspection, well appearing, no apparent distress, alert, GCS 15 Head: atraumatic ENT: normal ENT inspection, hearing grossly normal, normal voice Neck: normal inspection, full range of motion, supple, no bony tend Respiratory: normal inspection, lungs clear, normal breath sounds, no respiratory distress, no retraction, no wheezing Cardiovascular #1: regular rate, rhythm, no edema Gastrointestinal: normal inspection, normal bowel sounds, non tender, soft, no guarding, no hernia Genitourinary: no CVA tenderness Musculoskeletal: normal inspection, back normal, normal range of motion Neurologic: normal inspection, alert, responsive, speech normal Psychiatric: normal inspection, judgement/insight normal, mood/affect normal Skin: normal inspection, normal color, no rash Medical Decision Making Diagnostic Impression: Primary Impression: Bronchitis Additional Impression: Hypertension ER Course Patient presented for headache. Differential diagnoses included but was not limited to skull fracture, subarachnoid hemorrhage, meningitis, aneurysm, mass lesion, intracranial hemorrhage. CT the head was ordered due to patient's severe headache. CT of read by radiologist showed no acute hemorrhage or CVA. The patient was given antihypertensive medications as well as medications for headache. The patient had improvement in his pain. The patient is advised to follow up with primary care doctor in 1-2 days. Patient is advised to return if any worsening condition or if any changes in status that are concerning. Last Vital Signs Date Time Temp Pulse Resp B/P (MAP) Pulse Ox O2 Delivery O2 Flow Rate FiO2 01/10/17 06:20 57 15 144/75 98 57 01/10/17 06:05 97.5 Room Air Status: improved Disposition: HOME, SELF-CARE Condition: Stable Scripts Guaifenesin (Mucinex) 600 Mg Tab.er.12h 600 MG PO BID, #30 TAB Prov: Elton Higuera 01/10/17 Referrals: NOT CHOSEN IPA/MD,REFERRING (PCP) Patient Instructions: Cough, Adult Elton Higuera Jan 11, 2017 02:14
== END 2017-01-10 06:20 | disposition home or self-care (01) ==
LOC: EMR 04:18
DX: J20.9 Acute bronchitis, unspecified (principal); I10 Essential (primary) hypertension; R51 Headache; E11.9 Type 2 diabetes mellitus without complications
CPT/HCPCS: 70450; 71010; 96372; 99284; J2765

== ENCOUNTER 2017-04-11 17:53 | Emergency (ER) | payer MEDICARE, OTHER ==
[~2017-04-11] VITALS: Ht 182.9 cm; Wt 90.7 kg
[~2017-04-11 17:53] MED LIST changes: +MUCINEX600 MG PO
[2017-04-11 18:06] VITALS: BP 152/73
--- NOTE | 2017-04-11 18:09 | Emergency Room Report ---
History of Present Illness General Chief Complaint: Chest Pain Source: Patient Present Illness HPI Patient complains of substernal chest pain. Assessment stomach and radiates up into his jaw. Started this morning. He feels like it's his gastritis. He also had a similar problem before he had his color taken out several months ago. He denies any fevers or chills. He had some loose stool which was low earlier. Denies vomiting any blood. He has a history of gastritis and feels like this is similar to that. He also took Gaviscon and still had pain after this. The patient is a diabetic on oral medications. The patient's not been told that he has no cardiac issues. This pain is not exertional. He is on omeprazole. No anxiety, rashes. States glucose is well controlled. Allergies: Coded Allergies: No Known Allergies (Unverified , 06/02/12) Patient History Past Medical History: see triage record Social History: Denies: smoking Social History Narrative at home Reviewed Nursing Documentation: PMH: Agreed, PSxH: Agreed Nursing Documentation-PMH Hx Cardiac Problems: Yes - high cholesterol Hx Hypertension: Yes Hx Pacemaker: No Hx Asthma: No Hx COPD: No Hx Diabetes: Yes Hx Cancer: No Hx Gastrointestinal Problems: Yes - gallbladder ?rober Hx Dialysis: No Hx Neurological Problems: No Hx Cerebrovascular Accident: No Hx Seizures: No Review of Systems All Other Systems: negative except mentioned in HPI Physical Exam Vital Signs Date Time Temp Pulse Resp B/P (MAP) Pulse Ox O2 Delivery O2 Flow Rate FiO2 04/11/17 17:59 98.2 66 18 152/73 97 Room Air Sp02 EP Interpretation: reviewed, normal General Appearance: well appearing, no apparent distress, GCS 15 Head: normocephalic Eyes: bilateral eye normal inspection, bilateral eye PERRL ENT: moist mucus membranes Neck: supple Respiratory: lungs clear, normal breath sounds Cardiovascular #1: regular rate, rhythm Cardiovascular #2: 2+ radial (R) Gastrointestinal: normal inspection, normal bowel sounds, non tender, no mass, non-distended Musculoskeletal: back normal, gait/station normal, normal range of motion Neurologic: alert, oriented x3, grossly normal Psychiatric: mood/affect normal Skin: normal inspection, warm/dry Medical Decision Making Diagnostic Impression: Primary Impression: Chest pain Qualified Codes: R07.9 - Chest pain, unspecified Additional Impression: Diabetes Qualified Codes: E11.8 - Type 2 diabetes mellitus with unspecified complications ER Course The patient presents with chest pain. He says it's related to his stomach. Differential includes acute myocardial infarction, acute coronary syndrome, gastritis, GERD, esophageal spasm, pancreatitis amongst others. The patient's risk factors of diabetes. He is on omeprazole at this time. He did try Gaviscon also and this did not help him. Evaluation will be with EKG, chest x- ray and labs. His history is atypical but he is a diabetic. EKG shows right bundle branch block. There is no injury. Chest x-ray shows mild cardiomegaly. Labs were significant for negative troponin. The patient still has pain. The repeat EKG was done. There is some subtle changes between EKG #1 EKG #2. Because of these subtle EKG changes I feel the patient needs to be observed and have repeat troponins. The patient was discussed with Dr. Gonsalves who accepts the patient [facility]. Patient initially refused transport, then agreed when explained reasoning and risks. Laboratory Tests Test 04/11/17 18:20 White Blood Count 5.8 K/UL (4.8-10.8) Red Blood Count 5.64 M/UL (4.70-6.10) Hemoglobin 15.8 G/DL (14.2-18.0) Hematocrit 49.1 % (42.0-52.0) Mean Corpuscular Volume 87 FL (80-99) Mean Corpuscular Hemoglobin 28.0 PG (27.0-31.0) Mean Corpuscular Hemoglobin Concent 32.2 G/DL (32.0-36.0) Red Cell Distribution Width 11.7 % (11.6-14.8) Platelet Count 166 K/UL (150-450) Mean Platelet Volume 7.8 FL (6.5-10.1) Neutrophils (%) (Auto) 66.5 % (45.0-75.0) Lymphocytes (%) (Auto) 25.9 % (20.0-45.0) Monocytes (%) (Auto) 6.4 % (1.0-10.0) Eosinophils (%) (Auto) 0.5 % (0.0-3.0) Basophils (%) (Auto) 0.7 % (0.0-2.0) Prothrombin Time 12.7 SEC (9.30-11.50) H Prothrombin Time INR 1.2 (0.9-1.1) H PTT 30 SEC (23-33) Sodium Level 136 MMOL/L (136-145) Potassium Level 4.0 MMOL/L (3.5-5.1) Chloride Level 101 MMOL/L (98-107) Carbon Dioxide Level 27 MMOL/L (21-32) Anion Gap 8 mmol/L (5-15) Blood Urea Nitrogen 14 mg/dL (7-18) Creatinine 1.2 MG/DL (0.55-1.30) Estimate Glomerular Filtration Rate mL/min (>60) Glucose Level 230 MG/DL (74-106) H Calcium Level 9.2 MG/DL (8.5-10.1) Total Bilirubin 0.4 MG/DL (0.2-1.0) Aspartate Amino Transferase (AST) 22 U/L (15-37) Alanine Aminotransferase (ALT) 36 U/L (12-78) Alkaline Phosphatase 65 U/L (46-116) Total Creatine Kinase 213 U/L (26-308) Troponin I 0.000 ng/mL (0.000-0.056) Pro-B-Type Natriuretic Peptide 26 pg/mL (0-125) Total Protein 7.4 G/DL (6.4-8.2) Albumin 3.7 G/DL (3.4-5.0) Globulin 3.7 g/dL Albumin/Globulin Ratio 1.0 (1.0-2.7) EKG Diagnostic Results Rate: normal Rhythm: NSR ST Segments: no acute changes - Right bundle branch block Other Impression Repeat EKG NSR LAD, RBBB with subtle changes from first EKG Rhythm Strip Diag. Results EP Interpretation: yes Rhythm: NSR, no PVC's, no ectopy Chest X-Ray Diagnostic Results Chest X-Ray Diagnostic Results : Chest X-Ray Ordered: Yes # of Views/Limited/Complete: 1 View Indication: Chest Pain EP Interpretation: Yes Interpretation: no consolidation, no effusion, no pneumothorax, no acute cardiopulmonary disease Impression: No acute disease Electronically Signed by: Electronically signed by Alok Roblero MD Last Vital Signs Date Time Temp Pulse Resp B/P (MAP) Pulse Ox O2 Delivery O2 Flow Rate FiO2 04/11/17 23:22 98.7 60 16 134/72 97 Room Air Status: improved Disposition: XFER SHT-TRM HOSP Condition: Serious - stable for transfer Alok Roblero M.D. Apr 11, 2017 18:09
[2017-04-11] MEDS ORDERED: Mylanta II UD 30ml ORAL ONE (18:15)
[2017-04-11] MEDS ORDERED: Lidocaine 2% Visc 15ml soln ORAL ONE (18:15)
[2017-04-11] MEDS ORDERED: MELOXICAM15 MG PO (18:20)
[2017-04-11] MEDS ORDERED: ASPIR 8181 MG ORAL (18:20)
[2017-04-11] MEDS ORDERED: GLIPIZIDE5 MG ORAL (18:20)
[2017-04-11] MEDS ORDERED: ATORVASTATIN CA40 MG ORAL (18:20)
[2017-04-11] MEDS ORDERED: LISINOPRIL5 MG ORAL (18:20)
[2017-04-11] MEDS ORDERED: MECLIZINE HCL25 MG ORAL (18:20)
[2017-04-11] MEDS ORDERED: LEVOTHYROXINE125 MCG ORAL (18:20)
[2017-04-11] MEDS ORDERED: PANTOPRAZOLE SO40 MG ORAL (18:20)
[2017-04-11 18:41] LABS: BASOPHILS % (AUTO) 0.7 % (0.0-2.0); EOSINOPHILS % (AUTO) 0.5 % (0.0-3.0); LYMPHOCYTES % (AUTO) 25.9 % (20.0-45.0); MEAN CORPUSCULAR HGB CONC 32.2 G/DL (32.0-36.0); MEAN CORPUSCULAR VOLUME 87 FL (80-99); MEAN PLATELET VOLUME 7.8 FL (6.5-10.1); MONOCYTES % (AUTO) 6.4 % (1.0-10.0); NEUTROPHILS % (AUTO) 66.5 % (45.0-75.0); PLATELET COUNT 166 K/UL (150-450); RED BLOOD COUNT 5.64 M/UL (4.70-6.10); RED CELL DISTRIBUTION WIDTH 11.7 % (11.6-14.8); WHITE BLOOD COUNT 5.8 K/UL (4.8-10.8)
[2017-04-11 18:49] LABS: INR 1.2 (0.9-1.1); PROTHROMBIN TIME 12.7 SEC (9.30-11.50)
[2017-04-11 18:52] LABS: ANION GAP 8 mmol/L (5-15); CALCIUM 9.2 MG/DL (8.5-10.1); CARBON DIOXIDE 27 MMOL/L (21-32); CHLORIDE 101 MMOL/L (98-107); CREATININE 1.2 MG/DL (0.55-1.30); SODIUM 136 MMOL/L (136-145)
[2017-04-11 19:07] LABS: ALANINE AMINOTRANSFERASE 36 U/L (12-78); ASPARTATE AMINO TRANSFERASE 22 U/L (15-37); TOTAL PROTEIN 7.4 G/DL (6.4-8.2)
[2017-04-11 19:20] VITALS: BP 121/58
[2017-04-11] MEDS ORDERED: oxyCODONE HCL/Acetaminophen 5/325mg ORAL ONE (20:30)
[2017-04-11] MEDS ORDERED: Nitroglycerin 2% oint pkt TOPIC ONE (21:00)
[2017-04-11] MEDS ORDERED: Morphine Sulfate 4mg/ml Inj IVP ONE (21:00)
[2017-04-11 21:25] VITALS: BP 122/64
[2017-04-11 22:29] VITALS: BP 122/65
[2017-04-11 23:04] VITALS: BP 134/72
[2017-04-11 23:22] VITALS: BP 134/72
--- NOTE | 2017-04-12 10:21 | Diagnostic Imaging Report ---
Indication: Chest pain Technique: One view of the chest Comparison: 01/10/2017 Findings: The heart is mildly enlarged. There is minimal atelectasis at the left lung base. Lungs and pleural spaces are otherwise clear. Findings are unchanged Impression: Borderline cardiac regular. Left basilar atelectasis No acute process otherwise This agrees with the preliminary interpretation provided by the emergency room physician
--- NOTE | 2017-04-12 19:22 | Cardiology Report ---
APPROVED REPORT EKG Measurement Heart [id number] Sinus bradycardia with 1st degree AV block Left axis deviation Right bundle branch block Abnormal ECG
--- NOTE | 2017-04-12 19:23 | Cardiology Report ---
APPROVED REPORT EKG Measurement Heart [id number] Normal sinus rhythm Left axis deviation Right bundle branch block and left anterior fascicular block. Abnormal ECG
== END 2017-04-11 23:30 | disposition short-term general hospital (02) ==
LOC: EMR 18:11
DX: R07.89 Other chest pain (principal); E11.9 Type 2 diabetes mellitus without complications; I10 Essential (primary) hypertension
CPT/HCPCS: 36415; 71010; 80053; 82550; 83880; 84484; 85025; 85610; 85730; 93005; 96361; 96374; 96375; 99284; J2270; S0028

== ENCOUNTER → 2017-06-25 | Outpatient (CLI) | payer MEDICARE, OTHER ==
[~2017-06-25] MED LIST changes: +ASPIR 8181 MG ORAL; +ATORVASTATIN CA40 MG ORAL; +GLIPIZIDE5 MG ORAL; +LEVOTHYROXINE125 MCG ORAL; +LISINOPRIL5 MG ORAL; +MECLIZINE HCL25 MG ORAL; +MELOXICAM15 MG PO; +PANTOPRAZOLE SO40 MG ORAL
--- NOTE | 2017-06-25 15:12 | Diagnostic Imaging Report ---
Clinical Indication: Abdominal pain Technique: No oral contrast utilized, per emergency room physician request IV administration nonionic contrast. Venous phase spiral acquisition obtained through the abdomen and pelvis. Multiplanar reconstructions were generated. Total dose length product 843.9 mGycm. CTDIvol(s) 15.03 mGy. Dose reduction achieved using automated exposure control Comparison: 07/29/2016 Findings: Interim cholecystectomy. Within Morison's pouch, anterior to the interpolar region of the interpolar region of the right kidney and posterior to and immediately contiguous with the right hepatic lobe, there is a calcification which measures 10 mm in diameter, demonstrating the same morphology and size as the intracholecystic gallstone demonstrated on the previous exam. This is surrounded by a very thin rim of low-attenuation which is in turn surrounded by soft tissue attenuation tissue. No definite enhancement of the fat peripheral to the tissue is demonstrated, although a trace amount of free fluid is seen within Morison's pouch anterior and superior to this area as well as adjacent to the tip of the liver. There are cholecystectomy clips. No evidence of biloma. The bile ducts are normal in caliber. The liver is otherwise unremarkable. Previously reported hepatic dome lesion is only equivocally visible currently. The pancreas, spleen, adrenals, right kidney are unremarkable. Left kidney demonstrates a 2 mm lower pole calculus, also evident previously No renal or ureteral calculi, hydronephrosis, or hydroureter as previously, the prostate is enlarged. The bladder is equivocally minimally thick walled, most likely an artifact of under distention. No pelvic mass or adenopathy. No retroperitoneal or mesenteric mass or adenopathy. There are degenerative changes of the lumbosacral junction with posterior protrusion and osteophyte at the L4-5 disc level. The included lung bases are clear except for some posterior dependent atelectasis and/or scarring. The common iliac arteries are ectatic bilaterally. The appendix is normal. There is colonic diverticulosis. No evidence of diverticulitis. No small bowel distention. No free or loculated intraperitoneal air or fluid is evident. The distal esophagus is unremarkable. Surgical clips are seen in the wall of the stomach, not evident previously. The duodenum is unremarkable except for small duodenal diverticulum. Impression: Since prior exam of 07/29/2016, interim cholecystectomy. There is evidence of a dropped gallstone, presumably the gallstone that was demonstrated on the prior study, within Morison's pouch. This demonstrates some surrounding inflammatory reaction. The acuity of the inflammatory reaction is uncertain; the predominant soft tissue component suggests that the surrounding inflammatory reaction is mostly chronic, but the presence of minimal fluid centrally as well as trace free fluid immediately adjacent to it indicates that acute inflammatory process or even a tiny abscess is certainly a possibility No evidence of biloma or biliary ductal dilatation No other acute abnormality Nonobstructive 2 mm left lower pole renal calculus, also previously reported Prostatomegaly Equivocally minimally thickened gallbladder, most likely artifact of under distention, bladder wall thickening secondary to cystitis or chronic bladder outlet obstruction is also possible Colonic diverticulosis. No evidence of diverticulitis Gastric wall surgical clips, probably indicating prior endoscopic procedure Incidental findings as noted, including small duodenal diverticulum, degenerative spondylosis, basilar pulmonary parenchymal atelectasis and/or scarring The CT scanner at [facility] is accredited by the [employer] and the scans are performed using protocols designed to limit radiation exposure to as low as reasonably achievable to attain images of sufficient resolution adequate for diagnostic evaluation.
== END | disposition home or self-care (01) ==
LOC: CAT 13:33
DX: R10.9 Unspecified abdominal pain (principal); K57.30 Diverticulosis of large intestine without perforation or abscess without bleeding; Z90.49 Acquired absence of other specified parts of digestive tract; K80.80 Other cholelithiasis without obstruction; N20.0 Calculus of kidney; M47.9 Spondylosis, unspecified; J98.11 Atelectasis
CPT/HCPCS: 74177; Q9967